=== PATIENT | female | born 1965 | race African-American/Black ===

== ENCOUNTER 2016-12-28 20:06 | Emergency (ER) | payer MEDICAID ==
[~2016-12-28] VITALS: Ht 162.6 cm; Wt 80.0 kg
[2016-12-29] MEDS ORDERED: HYDROCODONE/ACETAMINOPHEN 5/325MG TABLET PO ONE (02:00)
[2016-12-29] MEDS ORDERED: AMOXICILLIN 500 MG CAPSULE PO ONE (02:00)
[2016-12-29 02:11] VITALS: BP 146/92
== END 2016-12-29 02:26 | disposition home or self-care (01) ==
LOC: ER 20:06
DX: K04.7 Periapical abscess without sinus (principal); J45.909 Unspecified asthma, uncomplicated
CPT/HCPCS: 93005; 99283; Z7610